=== PATIENT | female | born 1990 | race Caucasian/White ===

== ENCOUNTER 2016-10-26 09:37 | Emergency (ER) | payer OTHER ==
[~2016-10-26] VITALS: Ht 167.6 cm; Wt 72.0 kg
[~2016-10-26 09:37] MED LIST: LORA-474 PO; PARO30TA PO
[2016-10-26 09:40] VITALS: BP 126/96; PULSE 82; RESP 18; TEMP 99; O2SAT 97
[2016-10-26] MEDS ORDERED: CLON1 PO (09:53)
[2016-10-26] MEDS ORDERED: HUMIKIT2 SQ (09:53)
[2016-10-26] MEDS ORDERED: ZOLO100T PO (09:53)
[2016-10-26] MEDS ORDERED: XANA1TAB2 PO (09:53)
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
== END 2016-10-26 10:29 | disposition home or self-care (01) ==
LOC: PHED 09:37
DX: M54.2 Cervicalgia (principal); S80.211A Abrasion, right knee, initial encounter; Z86.59 Personal history of other mental and behavioral disorders; Z87.2 Personal history of diseases of the skin and subcutaneous tissue; Y04.2XXA Assault by strike against or bumped into by another person, initial encounter
CPT/HCPCS: 99283